=== PATIENT | female | born 2000 | race Caucasian/White ===

== ENCOUNTER 2022-05-06 19:27 | Emergency (ER) | payer OTHER, SELFPAY ==
[2022-05-06 20:04] VITALS: BP 111/62; PULSE 110; RESP 18; TEMP 37.1; O2SAT 98
--- NOTE | 2022-05-06 20:36 | ED.URI ---
HPI - URI/Sore Throat General Chief Complaint: Upper Respiratory Infection Stated Complaint: Headache,Sore Throat,Rt Ear Irritation Source: patient Mode of arrival: ambulatory Limitations: no limitations History of Present Illness HPI Narrative: 21-year-old female presents to [facility] with complaints of headache, body aches, postnasal drainage, bilateral ear pressure and sore throat since 3:00 a.m. today. Patient reports that her sister currently has similar symptoms. Patient has not tried taking any cvsz-lnt-eysrueu medications for symptoms. Patient is a nonsmoker. Patient denies recent travel. Patient denies shortness of breath, wheezing, nausea, vomiting or diarrhea. MD elicited complaint: sore throat, rhinorrhea and nasal congestion Onset (ago): hour(s) () Able to tolerate fluids by mouth: Yes Exacerbating factors: swallowing Treatments prior to arrival: none Related Data Allergies Allergy/AdvReac Type Severity Reaction Status Date / Time Penicillins Allergy Mild Other Verified 05/06/22 20:13 Review of Systems Constitutional: Constitutional: Reports chills, Denies fatigue, Denies fever(s) and Denies weakness ENT: Denies epistaxis, Reports nasal congestion and Reports sore throat Respiratory: Respiratory: Denies cough, Denies dyspnea and Denies wheezing Gastrointestinal: Gastrointestinal: Denies diarrhea, Denies nausea and Denies vomiting Integumentary/Breasts: Skin/Breast: Denies rash Neurologic: Denies vertigo and Denies dizziness PMFSH Comments At time of signature, I agree with nursing past medical, surgical, social and family history. There is no relevant family history pertinent to the presenting complaint. Exam Const: General: healthy appearing and no acute distress Nutritional Appearance: well nourished Orientation/consciousness: patient oriented x3 Limitations: no limitations HENMT: Head: normal to inspection Ears: external ears normal, TM's normal bilaterally and EAC's normal Face/Nose/Sinus: Normal external nose present Mouth: Yes Normal oral and palatal mucosa present and Yes moist mucous membranes Throat: posterior oropharynx normal and uvula midline Other: Mild nasal congestion noted with scant amount of clear nasal drainage Eyes: Conjunctivae: conjunctivae normal Neck: Neck: normal visual inspection Resp: Effort & Inspection: normal respiratory effort and not labored Auscultation: clear to auscultation bilaterally, no crackles, no rales and no rhonchi Cardio: Rate: regular rate Rhythm: regular rhythm Heart sounds: no murmurs Skin: General skin exam: normal color Rashes: no rashes Neuro: Speech: normal speech Psych: Affect: normal affect Attitude: cooperative Course Course Level of Care: Express Care Visit Vital Signs Vital signs: Vital Signs Temperature 37.1 C 05/06/22 20:04 Pulse Rate 110 H 05/06/22 20:04 Respiratory Rate 18 05/06/22 20:04 Blood Pressure 111/62 05/06/22 20:04 Pulse Oximetry 98 05/06/22 20:04 Oxygen Delivery Room Air 05/06/22 20:04 Temperature 37.1 C 05/06/22 20:04 Pulse Rate 110 H 05/06/22 20:04 Respiratory Rate 18 05/06/22 20:04 Blood Pressure 111/62 05/06/22 20:04 Pulse Oximetry 98 05/06/22 20:04 Oxygen Delivery Room Air 05/06/22 20:04 MDM - URI/Sore Throat MDM Narrative Medical decision making narrative: Patient is requesting antibiotics tonight; pain informed patient that antibiotics not be given as symptoms have only been present for 20 hours. Instructed patient to take Claritin as prescribed and to alternate Motrin and Tylenol as needed. Encourage patient completes warm saltwater gargles as needed. Throat culture obtained and sent to lab. Differential Diagnosis Differential diagnosis: Likely upper respiratory infection, otitis media and sinusitis Lab Data Labs: Strep Screen Presumptive Negative *(Reference Range: Negative)*
== END 2022-05-06 20:40 | disposition home or self-care (01) ==
PROVIDERS: Emergency Provider Nurse Practitioner Family
DX: B34.9 Viral infection, unspecified (principal)
CPT/HCPCS: 87081; 87880; 99213; G0463

== ENCOUNTER 2022-06-16 15:08 | Emergency (ER) | payer OTHER, SELFPAY ==
[2022-06-16 15:27] VITALS: BP 111/65; PULSE 100; RESP 18; TEMP 37.2; O2SAT 100
--- NOTE | 2022-06-16 15:44 | ED.URI ---
HPI - URI/Sore Throat General Chief Complaint: Upper Respiratory Infection Stated Complaint: congestion,headache Time Seen by Provider: 06/16/22 15:21 Source: patient Mode of arrival: ambulatory Limitations: no limitations History of Present Illness HPI Narrative: 21-year-old female presents to [facility] with complaints of headache, nasal congestion, body aches, sore throat, runny nose and chills since last night. Patient took eate-kku-ctqugog NyQuil last night with little relief. Patient denies sick contacts. Patient denies recent travel. Patient is nonsmoker. 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 MD elicited complaint: sore throat, rhinorrhea and nasal congestion Onset (ago): day(s) (1) Able to tolerate fluids by mouth: Yes Associated symptoms: chills, rhinorrhea, nasal congestion and sore throat Treatments prior to arrival: cold medicine Related Data Allergies Allergy/AdvReac Type Severity Reaction Status Date / Time Penicillins Allergy Mild Other Verified 06/16/22 15:34 Review of Systems Constitutional: Constitutional: Reports chills, Reports fatigue, Denies fever(s) and Denies weakness ENT: Denies dizziness, Denies epistaxis, Reports nasal congestion and Reports sore throat Cardiovascular: Cardiovascular: Denies chest pain Respiratory: Respiratory: Reports cough, Denies dyspnea and Denies wheezing Gastrointestinal: Gastrointestinal: Denies diarrhea, Denies nausea and Denies vomiting Musculoskeletal: Musculoskeletal: Denies arthralgias and Denies joint swelling Integumentary/Breasts: Skin/Breast: Denies rash PMFSH Comments At time of signature, I agree with nursing past medical, surgical, social and family history. There is no relevant family history pertinent to the presenting complaint. Exam Const: General: healthy appearing and no acute distress Nutritional Appearance: well nourished Orientation/consciousness: patient oriented x3 Limitations: no limitations HENMT: Head: normal to inspection Ears: external ears normal and TM's normal bilaterally Face and sinus: normal facial exam Mouth: Yes Normal oral and palatal mucosa present and Yes moist mucous membranes Teeth and gingiva: dentition normal Throat: posterior oropharynx normal and uvula midline Other: Mild bilateral nasal congestion noted Eyes: Conjunctivae: conjunctivae normal Neck: Neck: normal visual inspection Resp: Effort & Inspection: normal respiratory effort and not labored Auscultation: clear to auscultation bilaterally, no crackles, no rales, no rhonchi and no wheezes Cardio: Rate: regular rate Rhythm: regular rhythm Heart sounds: no murmurs Skin: General skin exam: normal color Rashes: no rashes Psych: Affect: normal affect Attitude: cooperative Course Course Level of Care: Express Care Visit Vital Signs Vital signs: Vital Signs Temperature 37.2 C 06/16/22 15:27 Pulse Rate 100 06/16/22 15:27 Respiratory Rate 18 06/16/22 15:27 Blood Pressure 111/65 06/16/22 15:27 Pulse Oximetry 100 06/16/22 15:27 Oxygen Delivery Room Air 06/16/22 15:27 Temperature 37.2 C 06/16/22 15:27 Pulse Rate 100 06/16/22 15:27 Respiratory Rate 18 06/16/22 15:27 Blood Pressure 111/65 06/16/22 15:27 Pulse Oximetry 100 06/16/22 15:27 Oxygen Delivery Room Air 06/16/22 15:27 MDM - URI/Sore Throat MDM Narrative Medical decision making narrative: Instructed patient that symptoms are likely viral at this time. Instructed patient to take Claritin and Flonase as prescribed. Instructed patient to alternate Motrin and Tylenol as needed. Instructed patient to follow-up with primary care provider if symptoms not improved Differential Diagnosis Differential diagnosis: Likely otitis media, sinusitis and bronchitis Lab Data Labs: Influenza A Screen Negative Reference Range: Negati
== END 2022-06-16 16:05 | disposition home or self-care (01) ==
PROVIDERS: Emergency Provider Nurse Practitioner Family
DX: B34.9 Viral infection, unspecified (principal); Z20.822 Contact with and (suspected) exposure to COVID-19
CPT/HCPCS: 87081; 87426; 87804; 87880; 99213; C9803; G0463

== ENCOUNTER 2024-12-08 20:29 | Emergency (ER) | payer OTHER, SELFPAY ==
--- OUTSIDE RECORDS SUMMARY | 2007-09-22 11:21 | XMS_ITS | Continuity of Care Document ---
Author Organization [facility] Address [address] [facility] [address] [place] [address] Phone Care Team Providers Care Scalemaker Name Role Phone Sheryl Santiago Unavailable Unavailable Procedures Procedure Date Eye Exam, New Patient Refraction Advance Directives Directive Yes / No Effective Date File Name No Information Encounters Encounter Description Practice Location Reason(s) For Visit Diagnoses Date Provider Providers Copied on Encounter [facility], [address], [place], [place], [id number], [place] tel:[phone] [facility] No Information [address] , [address], [place], [address], [place]. tel:[phone] Family History Family Member Type Diagnosis Age At Onset No Information Payers Payer name Insurance type Covered democrat ID Authoriza tion(s) Medicaid [facility] [id number] Social History Type Description Quantity Date Captured Comments Sex Female Smoking Status No Information Chief Complaint And Reason For Visit No Information Reason For Referral Reason For Referral No Information History Of Present Illness Encounter Date Complaint History Of Prese nt Illness No Information Functional Status Date Functional Assessmen t No Information Instructions Date Instruction Additional Infor mation No Information Assessments Type Assessment Date No Information Patient Care Teams Name Effective Dates (start - stop) Status Members No Information
--- OUTSIDE RECORDS SUMMARY | 2007-09-22 11:21 | XMS_ITS | Continuity of Care Document ---
Author Organization [facility] Address [address] [place] [address] Phone Care Team Providers Care Attorney Name Role Phone Sheryl Santiago Unavailable Unavailable Procedures Procedure Date Eye Exam, New Patient Refraction Advance Directives Directive Yes / No Effective Date File Name No Information Encounters Encounter Description Practice Location Reason(s) For Visit Diagnoses Date Provider Providers Copied on Encounter [facility], [address], [place], [place], [id number], [place] tel:[phone] [facility] No Information [address]. [address] , [address], [place], [address], [place]. tel:[phone] Family History Family Member Type Diagnosis Age At Onset No Information Payers Payer name Insurance type Covered green party ID Authoriza tion(s) Medicaid [facility] [id number] Social History Type Description Quantity Date Captured [...]
[2024-12-08 20:35] VITALS: BP 143/72; PULSE 95; RESP 16; TEMP 37.4; O2SAT 99
[2024-12-08 21:17] LABS: BEDSIDEPREGUCG Negative (Negative)
[2024-12-08 21:28] LABS: Add Urine Microscopic? YES; Appearance Urine Clear (Clear); Glucose Urine UA Negative (Negative); Leukocyte Esterase Ur Trace LEU/UL (Negative); Need Manual Microscopic Reviewed; Nitrate Urine Positive (Negative); Non Pathogenic Casts 0-2; Specific Grav Ur 1.007 (1.001-1.035)
--- NOTE | 2024-12-08 22:26 | ED_ITS ---
HPI - Female Genitourinary General Chief complaint: Urogenital-Female Stated complaint: continuing UTI and possible allergic reaction Time Seen by Provider: 12/08/24 21:16 History of Present Illness HPI Narrative: Patient is a 24-year-old female presents to the ER with urinary tract symptoms and hives. She reports she was diagnosed with urinary tract infection on November 18 and was prescribed Macrobid. Patient reports her symptoms continued so she was started on Bactrim on November 30, which she completed yesterday. She reports 1-2 days ago she started noticing hives which are most concentrated on her lower extremities. Patient endorses itching at the sites and red raised rash. She also endorses continued urinary frequency and cloudiness. Patient denies any belly pain, recent fevers, acute back pain. She reports she took Zyrtec prior to arrival. Patient reports her last bowel movement was earlier today and was normal for her. She denies any other medical history relevant to this ER visit. Patient reports she does have a history of allergies to penicillin. She also reports she would like to be tested for STDs. Related Data Allergies Allergy/AdvReac Type Severity Reaction Status Date / Time Penicillins Allergy Intermediate Swelling Verified 12/08/24 21:23 sulfamethoxazole (From Allergy Mild Rash Verified 12/08/24 21:23 Bactrim) trimethoprim (From Bactrim) Allergy Mild Rash Verified 12/08/24 21:23 Review of Systems Review of Systems: All systems reviewed & are unremarkable except as noted in HPI and below Exam Narrative: GENERAL: Well appearing, well-nourished, non-toxic, in no acute distress. HEAD: Normocephalic, atraumatic. NECK: Supple. No adenopathy, no masses. RESPIRATORY: Airway patent, respirations nonlabored. Clear to auscultation bilaterally, no rales, rhonchi, wheezing. CARDIOVASCULAR: Regular rate and rhythm without murmurs, rubs, or gallops. Peripheral pulses 2+ and equal bilaterally. ABDOMINAL: Soft, nontender, nondistended, no hepatosplenomegaly. Normoactive BS. MUSCULOSKELETAL: Moves all extremities. Strength/ROM intact without gross deformities. SKIN: Warm, dry, normal color. No rashes. NEURO: A&O X3. Speech clear. Cranial nerves II-XII intact. No ataxic movements. PSYCHIATRIC: Appropriate mood and affect. Normal interaction. Course Vital Signs Vital signs: Vital Signs Temperature 37.4 C 12/08/24 20:35 Pulse Rate 95 12/08/24 20:35 Respiratory Rate 16 12/08/24 20:35 Blood Pressure 143/72 H 12/08/24 20:35 Pulse Oximetry 99 12/08/24 20:35 Oxygen Delivery Room Air 12/08/24 20:35 Temperature 37.4 C 12/08/24 20:35 Pulse Rate 95 12/08/24 20:35 Respiratory Rate 16 12/08/24 20:35 Blood Pressure 143/72 H 12/08/24 20:35 Pulse Oximetry 99 12/08/24 20:35 Oxygen Delivery Room Air 12/08/24 21:20 MDM - Female Genitourinary MDM Narrative Medical decision making narrative: Patient is a 24-year-old female presents to the ER with urinary tract symptoms and hives. She reports she was diagnosed with urinary tract infection on November 18 and was prescribed Macrobid. Patient reports her symptoms continued so she was started on Bactrim on November 30, which she completed yesterday. She reports 1-2 days ago she started noticing hives which are most concentrated on her lower extremities. Patient endorses itching at the sites and red raised rash. She also endorses continued urinary frequency and cloudiness. Patient denies any belly pain, recent fevers, acute back pain. She reports she took Zyrtec prior to arrival. Patient reports her last bowel m ovement was earlier today and was normal for her. She denies any other medical history relevant to this ER visit. Patient reports she does have a history of allergies to penicillin. She also reports she would like to be tested for STDs. Labs Ordered: UA, Trichomonas, gonorrhea, chlamydia Imaging Ordered: None necessary Medications Ordered: Ceftriaxone 1 g IM, patient declines steroid adminis tration Results: Patient's urinalysis is still positive for nitrates after 2 rounds of oral antibiotics. Diagnosis: Urinary tract infection, hives Patient Education/Shared MDM: Results of lab work shared with patient. She continues to declines steroid administration and reports her itching has continued to subside. Patient will be given 1 g of ceftriaxone IM here in the ER to treat her urinary tract infection. She will not be discharged home with any new antibiotics. Patient strongly advised to maintain hydration status upon discharge and follow-up with her PCP in the next 2-3 days to ensure she is healing. She will be discharged home with a prescription for prednisone in case she begins to experience allergic symptoms again. Strict return precautions provided. Patient verbalized understanding and is in agreement with plan. Vital signs stable at time of discharge. All questions answered.: Differential Diagnosis Differential diagnosis: Likely urinary tract infection, trichomoniasis and other (Gonorrhea, chlamydia) Lab Data Attestation: I reviewed the patient's lab results. Labs: Lab Results 12/08/24 12/08/24 Range/Units 21:10 21:15 Urine Color Dark yellow (Yellow) Urine Appearance Clear (Clear) Urine pH 5.5 (5.0-9.0) Ur Specific [place] 1.007 (1.001-1.035) Urine Protein Negative (Negative) mg/dL Urine Glucose (UA) Negative (Negative) mg/dL Urine Ketones Negative (Negative) mg/dL Ur Blood (Man) Negative (Negative) Urine Nitrate Positive H (Negative) Urine Bilirubin Negative (Negative) Urine Urobilinogen 1.0 (<2.0) mg/dL Add Ur Microanalysis Reviewed Leukocyte Esterase Rfl Trace H (Negative) VARSHA/UL Urine RBC 0-2 (0-2) /hpf Urine WBC 0-5 (0-3) /hpf Ur Squamous Epith Cells None seen (Few) /hpf Urine Bacteria None seen /hpf Urine Casts 0-2 POC Urine HCG, Qual Negative (Negative) C. trachomatis (PCR) Not detected (NOT DETECTE) N. gonorrhoeae (PCR) Not detected (NOT DETECTE) T. vaginalis (PCR) Not detected (NOT DETECTE) Discharge Plan Discharge Clinical Impression: Urinary tract infection, Urticaria, Allergic reaction, Adverse reaction to drug Patient Disposition: Home Condition: Stable Instructions: Antibiotic Form, Urinary Tract Infection in Women (ED), General Allergic Reaction (ED) Additional Instructions: Please return to the ER with any worsening symptoms. Follow-up with primary care provider as soon as possible to ensure you are healing. Take all medications as prescribed, including regularly scheduled medications. If your allergy symptoms return you may take prednisone 40 mg by mouth, along with Zyrtec. Patient Language: Kinyarwanda Prescriptions: New prednisone 20 mg tablet 20 mg PO BID Qty: 10 0RF No Action loratadine [Claritin] 10 mg tablet 10 mg PO DAILY Qty: 30 0RF fluticasone propionate [Flonase Allergy Relief] 50 mcg/actuation spray,suspension 1 spray intranasal BID Qty: 16 0RF Rx Instructions: administer into each nostril Follow-up/Referrals: Solitario Estrada MD [Physician, Family Practice] Referral Note: primary care provider [facility] [Primary Care Provider, Internal Medicine] Stand Alone Forms: Work/School Release IP Time of Disposition: 00:49
--- NOTE | 2024-12-08 23:30 | PC.NURSE ---
per Dinorah WHEAT SHIPPER, thumb spica placed on patient right arm. WHEAT SHIPPER checked splint after placement.
[2024-12-09 00:09] LABS: Trichomonas Vag PCR NOT DETECTED (NOT DETECTE)
[2024-12-09] MEDS: cefTRIAXone 1 GM VIAL IM (01:05)
== END 2024-12-09 01:10 | disposition home or self-care (01) ==
PROVIDERS: Student in an Organized Health Care Education/Training Program; Emergency Provider Registered Nurse
DX: N39.0 Urinary tract infection, site not specified (principal); L50.9 Urticaria, unspecified; T36.8X5A Adverse effect of other systemic antibiotics, initial encounter
CPT/HCPCS: 81001; 81025; 87086; 87491; 87591; 87661; 96372; 99284; J0696